=== PATIENT | female | born 1950 | race Caucasian/White ===

== ENCOUNTER → 2017-03-16 | Outpatient (CLI) | payer OTHER ==
--- NOTE | 2017-03-16 11:58 | Diagnostic Imaging Report ---
PROCEDURE: Frontal and lateral views of the chest. COMPARISON: None. INDICATIONS: HIGH BLOOD PRESSURE FINDINGS: Lines/tubes: None. Lungs: The lungs are well inflated and clear. There is no evidence of pneumonia or pulmonary edema. Pleura: There is no pleural effusion or pneumothorax. Heart and mediastinum: The heart and the mediastinum are normal. Bones: No acute bony abnormality. IMPRESSION: 1. No acute cardiopulmonary disease. Dictated by: Chin Bueno M.D. on 03/16/2017 at 12:07 Electronically approved by: Chin Bueno M.D. on 03/16/2017 at 12:07
== END ==
LOC: RAD 11:18
PROVIDERS: ATTEND Internal Medicine
DX: I49.1 Atrial premature depolarization (principal)
CPT/HCPCS: 71020

== ENCOUNTER 2020-06-09 00:21 | Inpatient (IN) | payer MEDICARE, OTHER ==
[~2020-06-09] VITALS: Ht 175.3 cm; Wt 82.6 kg
[2020-06-09] VITALS (9 sets, daily range): BP systolic 123–140; BP diastolic 55–65
[2020-06-09] MEDS ORDERED: LOSARTAN POTASS50 MG PO (02:02)
[2020-06-09] MEDS ORDERED: HYDRALAZINE HCL 20 MG/ML VIAL IV PRN (02:15)
[2020-06-09] MEDS ORDERED: CLARITIN10 MG PO (02:38)
[2020-06-09] MEDS: ONDANSETRON HCL INJ 2MG/ML 2ML 2 MG/ML VIAL IV PRN ×3 (03:23→19:00)
[2020-06-09] MEDS: DEXTROSE 5%/0.9% SOD CHL 1,000 ML IV SCH ×2 (03:23→15:41)
[2020-06-09] MEDS: MORPHINE SULFATE INJ 2 MG/ML SYR IV PRN ×3 (03:23→19:01)
[2020-06-09 05:52] LABS: BASOPHILS # (AUTO) 0.1 (0.0-0.1); EOSINOPHILS # (AUTO) 0.2 (0.0-0.4); EOSINOPHILS % 2.2 % (0.0-6.0); HEMATOCRIT 30.7 % (34.2-44.1); HEMOGLOBIN 9.6 g/dL (12.0-16.0); LYMPHOCYTES # (AUTO) 1.4 (1.0-3.2); LYMPHOCYTES % 17.5 % (18.0-39.1); MEAN CORPUSCULAR HEMOGLOBIN 26.1 pg (28-32); MEAN CORPUSCULAR HGB CONC 31.3 g/dL (31-35); MEAN CORPUSCULAR VOLUME 83.4 fL (81-99); MONOCYTES # (AUTO) 0.8 (0.2-0.8); MONOCYTES % 9.2 % (4.4-11.3); NEUTROPHILS # (AUTO) 5.8 (2.1-6.9); NEUTROPHILS % 69.9 % (38.7-80.0); PLATELET COUNT 153 x10e3/uL (140-360); RED BLOOD COUNT 3.68 x10e6/uL (3.6-5.1); RED CELL DISTRIBUTION WIDTH 15.4 % (11.7-14.4)
[2020-06-09 06:00] LABS: INR 0.89; PROTHROMBIN TIME 12.6 seconds (11.9-14.5)
[2020-06-09 06:01] LABS: PARTIAL THROMBOPLASTIN TIME 29.7 seconds (23.8-35.5)
[2020-06-09 06:05] LABS: ANION GAP 10.7 mmol/L (8-16); BLOOD UREA NITROGEN 19 mg/dL (7-26); BUN/CREATININE RATIO 31 (6-25); CALCIUM 8.9 mg/dL (8.4-10.2); CARBON DIOXIDE 27 mmol/L (22-29); CHLORIDE 103 mmol/L (98-107); CREATININE, SERUM 0.61 mg/dL (0.57-1.11); EST GLOMERULAR FILTRATION RATE > 60 ML/MIN (60-); GLUCOSE 121 mg/dL (74-118); POTASSIUM 3.7 mmol/L (3.5-5.1); SODIUM 137 mmol/L (136-145)
[2020-06-09] MEDS: ACETAMINOPHEN 325 MG TAB PO PRN (15:48)
[2020-06-09] MEDS: LOSARTAN POTASSIUM 100 MG TAB PO SCH (17:06)
[2020-06-09] MEDS ORDERED: MELATONIN 5 MG TABLET PO PRN (21:15)
[2020-06-10] VITALS: BP 145/69
[2020-06-10] MEDS: MORPHINE SULFATE INJ 2 MG/ML SYR IV PRN ×4 (00:50→20:30)
[2020-06-10] MEDS: ONDANSETRON HCL INJ 2MG/ML 2ML 2 MG/ML VIAL IV PRN ×4 (00:50→20:30)
[2020-06-10 04:00] VITALS: BP 125/54
[2020-06-10] MEDS: LOSARTAN POTASSIUM 100 MG TAB PO SCH ×2 (08:45→17:37)
[2020-06-10] MEDS: BISACODYL 5 MG TAB EC PO PRN (09:30)
[2020-06-10] MEDS: DOCUSATE SODIUM 100 MG CAP PO SCH ×2 (09:30→17:36)
[2020-06-10 11:52] VITALS: BP 122/51
[2020-06-10 12:11] VITALS: BP 126/56
[2020-06-10 12:18] LABS: BASOPHILS # (AUTO) 0.1 (0.0-0.1); BASOPHILS % 0.8 % (0.0-1.0); EOSINOPHILS # (AUTO) 0.2 (0.0-0.4); EOSINOPHILS % 2.2 % (0.0-6.0); HEMATOCRIT 31.3 % (34.2-44.1); HEMOGLOBIN 9.8 g/dL (12.0-16.0); LYMPHOCYTES # (AUTO) 1.2 (1.0-3.2); LYMPHOCYTES % 14.1 % (18.0-39.1); MEAN CORPUSCULAR HEMOGLOBIN 26.2 pg (28-32); MEAN CORPUSCULAR HGB CONC 31.3 g/dL (31-35); MEAN CORPUSCULAR VOLUME 83.7 fL (81-99); MONOCYTES # (AUTO) 0.6 (0.2-0.8); MONOCYTES % 7.4 % (4.4-11.3); NEUTROPHILS # (AUTO) 6.5 (2.1-6.9); NEUTROPHILS % 75.2 % (38.7-80.0); PLATELET COUNT 161 x10e3/uL (140-360); RED BLOOD COUNT 3.74 x10e6/uL (3.6-5.1); RED CELL DISTRIBUTION WIDTH 15.7 % (11.7-14.4)
[2020-06-10 12:26] LABS: INR 0.78; PROTHROMBIN TIME 11.4 seconds (11.9-14.5)
[2020-06-10 12:27] LABS: PARTIAL THROMBOPLASTIN TIME 27.9 seconds (23.8-35.5)
[2020-06-10 12:33] LABS: ANION GAP 13.4 mmol/L (8-16); BLOOD UREA NITROGEN 13 mg/dL (7-26); BUN/CREATININE RATIO 21 (6-25); CALCIUM 9.4 mg/dL (8.4-10.2); CARBON DIOXIDE 26 mmol/L (22-29); CHLORIDE 105 mmol/L (98-107); CREATININE, SERUM 0.62 mg/dL (0.57-1.11); EST GLOMERULAR FILTRATION RATE > 60 ML/MIN (60-); GLUCOSE 108 mg/dL (74-118); POTASSIUM 4.4 mmol/L (3.5-5.1); SODIUM 140 mmol/L (136-145)
[2020-06-10 16:06] VITALS: BP 140/55
[2020-06-10 20:00] VITALS: BP 123/50
[2020-06-11] VITALS (8 sets, daily range): BP systolic 123–146; BP diastolic 58–73
[2020-06-11] MEDS: MORPHINE SULFATE INJ 2 MG/ML SYR IV PRN ×3 (04:19→23:11)
[2020-06-11] MEDS: ONDANSETRON HCL INJ 2MG/ML 2ML 2 MG/ML VIAL IV PRN ×4 (04:19→23:30)
[2020-06-11 05:17] LABS: BASOPHILS # (AUTO) 0.1 (0.0-0.1); BASOPHILS % 1.4 % (0.0-1.0); EOSINOPHILS # (AUTO) 0.3 (0.0-0.4); EOSINOPHILS % 4.7 % (0.0-6.0); HEMATOCRIT 27.2 % (34.2-44.1); HEMOGLOBIN 8.6 g/dL (12.0-16.0); LYMPHOCYTES # (AUTO) 1.2 (1.0-3.2); LYMPHOCYTES % 16.6 % (18.0-39.1); MEAN CORPUSCULAR HEMOGLOBIN 26.4 pg (28-32); MEAN CORPUSCULAR HGB CONC 31.6 g/dL (31-35); MEAN CORPUSCULAR VOLUME 83.4 fL (81-99); MONOCYTES # (AUTO) 0.7 (0.2-0.8); MONOCYTES % 10.3 % (4.4-11.3); NEUTROPHILS # (AUTO) 4.7 (2.1-6.9); NEUTROPHILS % 66.6 % (38.7-80.0); PLATELET COUNT 138 x10e3/uL (140-360); RED BLOOD COUNT 3.26 x10e6/uL (3.6-5.1); RED CELL DISTRIBUTION WIDTH 15.7 % (11.7-14.4)
[2020-06-11 05:53] LABS: BLOOD UREA NITROGEN 14 mg/dL (7-26); BUN/CREATININE RATIO 22 (6-25); CARBON DIOXIDE 30 mmol/L (22-29); CHLORIDE 102 mmol/L (98-107); CREATININE, SERUM 0.63 mg/dL (0.57-1.11); EST GLOMERULAR FILTRATION RATE > 60 ML/MIN (60-); GLUCOSE 108 mg/dL (74-118); SODIUM 137 mmol/L (136-145)
[2020-06-11] MEDS: DOCUSATE SODIUM 100 MG CAP PO SCH ×2 (09:00→17:00)
[2020-06-11] MEDS: LOSARTAN POTASSIUM 100 MG TAB PO SCH ×2 (09:00→17:00)
[2020-06-11] MEDS ORDERED: CEFAZOLIN SOD 1 GM/NS 50ML 100 ML IV ONE (11:57)
[2020-06-11] MEDS ORDERED: ONDANSETRON HCL INJ 2MG/ML 2ML 2 MG/ML VIAL ONE ×2 (13:36→17:29)
[2020-06-11] MEDS ORDERED: LIDOCAINE HCL 2% LOCAL INJ 5 ML SDV VIAL INJ ONE (13:36)
[2020-06-11] MEDS ORDERED: SEVOFLURANE INHAL SOLN 250 ML PEN BTL ONE (13:36)
[2020-06-11] MEDS ORDERED: PROPOFOL IV EMULSION 10 MG/ML 20 ML VIAL ONE (13:36)
[2020-06-11] MEDS ORDERED: DEXAMETHASONE SOD PHOS INJ 4 MG/ML VIAL ONE (13:36)
[2020-06-11] MEDS ORDERED: ACETAMINOPHEN 1000 MG/100 ML 100 ML IV ONE (13:39)
[2020-06-11] MEDS ORDERED: HYDROMORPHONE 1MG/1ML INJ ONE ×2 (13:39→17:20)
[2020-06-11] MEDS ORDERED: BUPIVACAINE HCL 0.5% INJ 30 ML VIAL INJ ONE ×2 (14:06→15:08)
[2020-06-11] MEDS ORDERED: VANCOMYCIN HCL 500 MG ONE (14:07)
[2020-06-11] MEDS ORDERED: VANCOMYCIN HCL 1 GM VIAL ONE (16:04)
[2020-06-11] MEDS ORDERED: FENTANYL CITRATE/PF 100MCG/2 ML INJ ONE ×2 (17:14→19:39)
[2020-06-11] MEDS ORDERED: MIDAZOLAM HCL 2 MG/2 ML VIAL ONE (19:39)
[2020-06-11] MEDS: CEFAZOLIN SOD 2 GM/NS 50ML 50 ML IV SCH (20:00)
[2020-06-11] MEDS ORDERED: SODIUM CHLORIDE 0.9% 250ML 250 ML ONE (20:51)
[2020-06-11] MEDS ORDERED: CEFAZOLIN SOD 1 GM VIAL IV SCH (22:00)
[2020-06-12] VITALS (7 sets, daily range): BP systolic 122–132; BP diastolic 45–65
[2020-06-12] MEDS: MORPHINE SULFATE INJ 2 MG/ML SYR IV PRN (03:30)
[2020-06-12] MEDS: CEFAZOLIN SOD 2 GM/NS 50ML 50 ML IV SCH ×3 (03:30→20:30)
[2020-06-12] MEDS: ONDANSETRON HCL INJ 2MG/ML 2ML 2 MG/ML VIAL IV PRN ×4 (03:30→21:30)
[2020-06-12] MEDS: MORPHINE SULFATE INJ 4 MG/ML INJ 1ML IV PRN ×4 (05:17→21:30)
[2020-06-12 05:47] LABS: HEMATOCRIT 30.2 % (34.2-44.1); HEMOGLOBIN 9.8 g/dL (12.0-16.0)
[2020-06-12] MEDS: ASPIRIN 81 MG ENTERIC COATED PO SCH ×2 (09:06→17:33)
[2020-06-12] MEDS: DOCUSATE SODIUM 100 MG CAP PO SCH ×2 (09:07→17:33)
[2020-06-12] MEDS: LOSARTAN POTASSIUM 100 MG TAB PO SCH ×2 (09:07→17:33)
[2020-06-12] MEDS: LORATADINE 10 MG TAB PO SCH (10:39)
[2020-06-12] MEDS ORDERED: SODIUM CHLORIDE 0.9% 250ML 250 ML ONE (20:37)
[2020-06-13] VITALS: BP 121/54
[2020-06-13] MEDS: ONDANSETRON HCL INJ 2MG/ML 2ML 2 MG/ML VIAL IV PRN ×4 (01:45→14:26)
[2020-06-13] MEDS: MORPHINE SULFATE INJ 4 MG/ML INJ 1ML IV PRN ×4 (01:45→14:27)
[2020-06-13 04:00] VITALS: BP 125/57
[2020-06-13] MEDS: CEFAZOLIN SOD 2 GM/NS 50ML 50 ML IV SCH ×3 (04:12→21:09)
[2020-06-13 05:23] LABS: HEMATOCRIT 26.9 % (34.2-44.1); HEMOGLOBIN 8.6 g/dL (12.0-16.0)
[2020-06-13 07:19] VITALS: BP 123/55
[2020-06-13] MEDS: DOCUSATE SODIUM 100 MG CAP PO SCH ×2 (08:19→16:51)
[2020-06-13] MEDS: ASPIRIN 81 MG ENTERIC COATED PO SCH ×2 (08:19→16:51)
[2020-06-13] MEDS: LOSARTAN POTASSIUM 100 MG TAB PO SCH ×2 (08:19→16:52)
[2020-06-13] MEDS: LORATADINE 10 MG TAB PO SCH (08:19)
[2020-06-13 11:11] VITALS: BP 127/54
[2020-06-13] MEDS: ACETAMINOPHEN 325 MG TAB PO PRN (11:58)
[2020-06-13 15:17] VITALS: BP 102/41
[2020-06-13] MEDS ORDERED: HYDROCODONE/APAP 5MG-325MG TAB PO PRN (15:45)
[2020-06-13] MEDS: BISACODYL 5 MG TAB EC PO PRN (16:52)
[2020-06-13 20:00] VITALS: BP 114/44
[2020-06-13] MEDS: HYDROCODONE/APAP 10MG-325MG TAB PO PRN (21:17)
[2020-06-14] VITALS (9 sets, daily range): BP systolic 102–147; BP diastolic 48–69
[2020-06-14] MEDS: HYDROCODONE/APAP 10MG-325MG TAB PO PRN ×6 (01:30→22:25)
[2020-06-14] MEDS: CEFAZOLIN SOD 2 GM/NS 50ML 50 ML IV SCH ×3 (04:36→20:28)
[2020-06-14 05:28] LABS: BASOPHILS # (AUTO) 0.1 (0.0-0.1); EOSINOPHILS # (AUTO) 0.3 (0.0-0.4); EOSINOPHILS % 4.7 % (0.0-6.0); HEMATOCRIT 26.2 % (34.2-44.1); HEMOGLOBIN 8.2 g/dL (12.0-16.0); LYMPHOCYTES # (AUTO) 1.1 (1.0-3.2); MEAN CORPUSCULAR HEMOGLOBIN 26.4 pg (28-32); MEAN CORPUSCULAR HGB CONC 31.3 g/dL (31-35); MEAN CORPUSCULAR VOLUME 84.2 fL (81-99); MONOCYTES # (AUTO) 0.7 (0.2-0.8); MONOCYTES % 11.1 % (4.4-11.3); NEUTROPHILS % 64.7 % (38.7-80.0); PLATELET COUNT 172 x10e3/uL (140-360); RED BLOOD COUNT 3.11 x10e6/uL (3.6-5.1); RED CELL DISTRIBUTION WIDTH 15.6 % (11.7-14.4)
[2020-06-14] MEDS: ASPIRIN 81 MG ENTERIC COATED PO SCH ×2 (08:18→17:45)
[2020-06-14] MEDS: DOCUSATE SODIUM 100 MG CAP PO SCH ×2 (08:19→17:45)
[2020-06-14] MEDS: LORATADINE 10 MG TAB PO SCH (08:19)
[2020-06-14] MEDS: LOSARTAN POTASSIUM 100 MG TAB PO SCH ×2 (08:20→17:46)
[2020-06-14] MEDS: BISACODYL 5 MG TAB EC PO PRN (13:49)
[2020-06-14] MEDS ORDERED: SODIUM CHLORIDE 0.9% 250ML 250 ML ONE (20:46)
[2020-06-15] VITALS: BP 133/48
[2020-06-15] MEDS: HYDROCODONE/APAP 10MG-325MG TAB PO PRN ×4 (02:33→16:06)
[2020-06-15 04:00] VITALS: BP 114/61
[2020-06-15] MEDS: CEFAZOLIN SOD 2 GM/NS 50ML 50 ML IV SCH ×2 (04:00→13:00)
[2020-06-15 08:00] VITALS: BP 118/53
[2020-06-15] MEDS: DOCUSATE SODIUM 100 MG CAP PO SCH ×2 (09:00→16:07)
[2020-06-15] MEDS: ASPIRIN 81 MG ENTERIC COATED PO SCH ×2 (09:00→16:06)
[2020-06-15] MEDS: LORATADINE 10 MG TAB PO SCH (09:00)
[2020-06-15] MEDS: LOSARTAN POTASSIUM 100 MG TAB PO SCH ×2 (09:00→16:07)
[2020-06-15 09:17] VITALS: BP 118/53
[2020-06-15 11:46] VITALS: BP 123/57
[2020-06-15] MEDS ORDERED: HYDROCODON-ACE1 EA11 PO (16:06)
[2020-06-15] MEDS ORDERED: COLACE100 MG PO (16:06)
[2020-06-15] MEDS ORDERED: ASPIRIN EC81 MG PO (16:07)
[2020-06-15] MEDS ORDERED: TYLENOL # 31 EA PO ×3 (16:15→16:19)
[2020-06-15 16:18] VITALS: BP 144/68
== END 2020-06-15 18:22 | DRG 493 ==
LOC: MED/SURG 01:08
PROVIDERS: ADMIT Internal Medicine; ATTEND Internal Medicine
PROC: 0QSG04Z Reposition Right Tibia with Internal Fixation Device, Open Approach (ICD-10-PCS; principal; 2020-06-11 11:59)
PROC: 0QSD04Z Reposition Right Patella with Internal Fixation Device, Open Approach (ICD-10-PCS; 2020-06-11 11:59)
DX: S82.041A Displaced comminuted fracture of right patella, initial encounter for closed fracture (principal); S82.191A Other fracture of upper end of right tibia, initial encounter for closed fracture; I10 Essential (primary) hypertension; W01.0XXA Fall on same level from slipping, tripping and stumbling without subsequent striking against object, initial encounter; Y93.89 Activity, other specified; Y92.019 Unspecified place in single-family (private) house as the place of occurrence of the external cause; Z80.9 Family history of malignant neoplasm, unspecified; K59.00 Constipation, unspecified; J30.2 Other seasonal allergic rhinitis; D64.9 Anemia, unspecified; S82.831A Other fracture of upper and lower end of right fibula, initial encounter for closed fracture
CPT/HCPCS: 36415; 71045; 76000; 80048; 85014; 85018; 85025; 85610; 85730; 86850; 86900; 93005; 97139; C1713; C1769; J0690; J1100; J1170; J2001; J2250; J2270; J2405; J3010; J3370; J7042; J7050

== ENCOUNTER → 2020-11-21 | Outpatient (CLI) | payer MEDICARE ==
[~2020-11-21] MED LIST: ASPIRIN EC81 MG PO; CLARITIN10 MG PO; COLACE100 MG PO; HYDROCODON-ACE1 EA11 PO; LOSARTAN POTASS50 MG PO; TYLENOL # 31 EA PO
== END ==
LOC: CT 14:49
PROVIDERS: ATTEND Orthopaedic Surgery Foot and Ankle Surgery
DX: S82.871G Displaced pilon fracture of right tibia, subsequent encounter for closed fracture with delayed healing (principal)

== ENCOUNTER → 2020-12-04 | Day surgery (SDC) | payer MEDICARE ==
[2020-12-03 11:15] LABS: BASOPHILS # (AUTO) 0.1 (0.0-0.1); BASOPHILS % 1.1 % (0.0-1.0); EOSINOPHILS # (AUTO) 0.2 (0.0-0.4); EOSINOPHILS % 2.6 % (0.0-6.0); HEMATOCRIT 39.2 % (34.2-44.1); HEMOGLOBIN 11.9 g/dL (12.0-16.0); LYMPHOCYTES # (AUTO) 1.2 (1.0-3.2); LYMPHOCYTES % 13.5 % (18.0-39.1); MEAN CORPUSCULAR HEMOGLOBIN 25.3 pg (28-32); MEAN CORPUSCULAR HGB CONC 30.4 g/dL (31-35); MEAN CORPUSCULAR VOLUME 83.4 fL (81-99); MONOCYTES # (AUTO) 0.7 (0.2-0.8); MONOCYTES % 7.8 % (4.4-11.3); NEUTROPHILS # (AUTO) 6.6 (2.1-6.9); NEUTROPHILS % 74.5 % (38.7-80.0); PLATELET COUNT 218 x10e3/uL (140-360); RED CELL DISTRIBUTION WIDTH 14.1 % (11.7-14.4)
[~2020-12-04] MED LIST changes: +BUPIVACAINE HCL 0.5% INJ 30 ML VIAL INJ ONE; +FENTANYL CITRATE/PF 100MCG/2 ML INJ ONE; +HAIR, SKIN & N1 EACH PO; +MORPHINE SULFATE INJ 2 MG/ML SYR ONE; +MULTI-VITAMIN1 EACH PO; +OS-CAL 500+D T1 EACH PO; +SODIUM CHLORIDE 0.9% 50ML 100 ML ONE; +ULTRAM50 MG PO; +VITAMIN C500 MG PO; +Vancomycin IV 500 MG ONE
[2020-12-04 16:15] VITALS: BP 143/70
== END | disposition home or self-care (01) ==
LOC: OR 06:51
PROVIDERS: ATTEND Orthopaedic Surgery Foot and Ankle Surgery
DX: S91.001A Unspecified open wound, right ankle, initial encounter (principal); Z87.81 Personal history of (healed) traumatic fracture; I10 Essential (primary) hypertension; Z45.89 Encounter for adjustment and management of other implanted devices; X58.XXXA Exposure to other specified factors, initial encounter; Z01.810 Encounter for preprocedural cardiovascular examination; Z01.812 Encounter for preprocedural laboratory examination; Z01.818 Encounter for other preprocedural examination; Z20.822 Contact with and (suspected) exposure to COVID-19; Z68.30 Body mass index [BMI] 30.0-30.9, adult; Z85.3 Personal history of malignant neoplasm of breast
CPT/HCPCS: 11044; 36415; 71046; 76000; 85025; 87071; 87075; 87186; 87205; 93005; J0690; J2270; J3010; J3370; U0002